=== PATIENT | male | born 1965 | race Caucasian/White ===

== ENCOUNTER 2017-05-09 11:42 | Emergency (ER) | payer MEDICAID ==
[~2017-05-09] VITALS: Ht 177.8 cm; Wt 81.6 kg
[2017-05-09 12:23] LABS: Basophils # (auto) 0.1 uL; Basophils % (auto) 1.1 % (0.0-2.0); Eosinophils # (auto) 0.2 uL; Hematocrit 38.9 % (41.0-53.0); Hemoglobin 13.1 g/dL (13.5-17.5); Lymphocytes # (auto) 1.7 uL; Lymphocytes % (auto) 20.4 % (10.0-50.0); Mean Corpuscular Hgb Conc. 33.6 g/dL (32.0-36.0); Mean Corpuscular Volume 98.4 fL (80.0-100.0); Mean Platelet Volume 10.5 fL (7.4-10.4); Monocytes # (auto) 0.5 uL; Monocytes % (auto) 5.9 % (0.0-12.0); Neutrophils # (auto) 5.7 uL; Neutrophils % (auto) 70.6 % (37.0-80.0); Platelet Count (auto) 199 10^3/uL (140-450); Red Cell Distribution Width 15.3 % (11.6-16.0); SUSPECT VIEW TRANSMISSION; White Blood Cell 8.1 10^3/uL (4.4-10.8)
[2017-05-09 12:58] LABS: Albumin 3.1 g/dL (3.4-5.0); Calcium 8.6 mg/dL (8.5-10.1)
[2017-05-09 13:02] LABS: Bilirubin, Total 0.5 mg/dL (0.2-1.0)
[2017-05-09 14:01] LABS: Potassium 4.9 mmol/L (3.5-5.1)
[2017-05-09 14:06] LABS: Magnesium 2.1 mg/dL (1.6-2.6)
[2017-05-09 15:44] VITALS: BP 119/73
== END 2017-05-09 15:45 | disposition home or self-care (01) ==
LOC: ER 11:51
DX: F41.9 Anxiety disorder, unspecified (principal); J20.9 Acute bronchitis, unspecified; F17.210 Nicotine dependence, cigarettes, uncomplicated; F12.10 Cannabis abuse, uncomplicated; F15.10 Other stimulant abuse, uncomplicated; F14.10 Cocaine abuse, uncomplicated; F11.10 Opioid abuse, uncomplicated
CPT/HCPCS: 36415; 71020; 80053; 80307; 83735; 84484; 85025; 93005

== ENCOUNTER 2017-05-12 11:05 | Inpatient (IN) | payer MEDICAID ==
[~2017-05-12] VITALS: Ht 175.3 cm; Wt 77.1 kg
[2017-05-12] MEDS ORDERED: SODIUM CHLORIDE 0.9% 1,000 ML IV ONE (11:45)
[2017-05-12 12:05] LABS: Basophils # (auto) 0 uL; Basophils % (auto) 0.5 % (0.0-2.0); CONDITION Y; Eosinophils # (auto) 0.1 uL; Eosinophils % (auto) 1.2 % (0.0-7.0); Hematocrit 35.7 % (41.0-53.0); Hemoglobin 12.1 g/dL (13.5-17.5); Lymphocytes # (auto) 1.8 uL; Lymphocytes % (auto) 22.4 % (10.0-50.0); Mean Corpuscular Hemoglobin 33.3 pg (28.0-32.0); Mean Corpuscular Hgb Conc. 33.9 g/dL (32.0-36.0); Mean Corpuscular Volume 98.2 fL (80.0-100.0); Mean Platelet Volume 9.4 fL (7.4-10.4); Monocytes # (auto) 0.5 uL; Monocytes % (auto) 6.3 % (0.0-12.0); Neutrophils # (auto) 5.5 uL; Neutrophils % (auto) 69.6 % (37.0-80.0); Platelet Count (auto) 197 10^3/uL (140-450); Red Cell Distribution Width 15.2 % (11.6-16.0); White Blood Cell 7.9 10^3/uL (4.4-10.8)
[2017-05-12 12:29] LABS: Albumin 3.1 g/dL (3.4-5.0); Alkaline Phosphatase 102 U/L (45-117); Anion Gap 11 (5-15); Aspartate Aminotransferase 89 U/L (15-37); BUN/Creatinine Ratio 24.3; Blood Urea Nitrogen 17 mg/dL (7-18); Calcium 8.3 mg/dL (8.5-10.1); Carbon Dioxide 25 mmol/L (21-32); Chloride 94 mmol/L (98-107); GFR African American 154 mL/min; GFR Non-African American 127 mL/min; Glucose 98 mg/dL (74-106); Potassium 4.1 mmol/L (3.5-5.1); Sodium 130 mmol/L (136-145)
[2017-05-12 13:31] LABS: Salicylate 1.9 mg/dL (2.8-20.0)
[2017-05-12 13:44] LABS: Acetaminophen 63.5 ug/mL (10-30)
[2017-05-12] MEDS ORDERED: ACETYLCYSTEINE ORAL for CIN 20%(200MG/ML) 4ML PO ONE (14:15)
[2017-05-12] MEDS ORDERED: PROMETHAZINE HCL 25 MG/ML 1ML IV PRN (14:15)
[2017-05-12] MEDS ORDERED: LACTULOSE 20Gm/30ML SOLN PO PRN (14:15)
[2017-05-12] MEDS ORDERED: NITROGLYCERIN 0.4 MG SL TAB SL PRN (14:15)
[2017-05-12] MEDS ORDERED: MORPHINE SULF INJ 2 MG/ML SYRINGE 1ML IV PRN (14:15)
[2017-05-12] MEDS: SODIUM CHLORIDE 0.9% 1,000 ML IV SCH ×2 (14:50→22:22)
[2017-05-12] MEDS: MORPHINE SULF INJ 2 MG/ML SYRINGE 1ML IV PRN ×2 (16:21→20:11)
[2017-05-12 19:51] LABS: BUN/Creatinine Ratio 23.1; Potassium 4.2 mmol/L (3.5-5.1)
[2017-05-12 20:08] LABS: Bilirubin, Total 0.4 mg/dL (0.2-1.0); Total Protein 7.4 g/dL (6.4-8.2)
[2017-05-12 21:13] VITALS: BP 102/67
[2017-05-12] MEDS: TEMAZEPAM 15 MG CAP PO PRN (22:18)
[2017-05-12] MEDS: ACETYLCYSTEINE 20%(200MG/ML) SOLN 30ML PO SCH (22:19)
[2017-05-13] MEDS ORDERED: QUET50TA PO (01:04)
[2017-05-13] MEDS ORDERED: LITH300T5 PO (01:05)
[2017-05-13] MEDS ORDERED: [UNRECOGNIZED DRUG - CODE] PO (01:06)
[2017-05-13] MEDS: MORPHINE SULF INJ 2 MG/ML SYRINGE 1ML IV PRN ×6 (02:34→21:31)
[2017-05-13] MEDS: ACETYLCYSTEINE 20%(200MG/ML) SOLN 30ML PO SCH ×6 (02:34→21:30)
[2017-05-13] MEDS: SODIUM CHLORIDE 0.9% 1,000 ML IV SCH ×4 (02:45→19:44)
[2017-05-13 05:57] VITALS: BP 117/73
[2017-05-13 07:24] LABS: Basophils # (auto) 0 uL; Basophils % (auto) 0.5 % (0.0-2.0); CONDITION AutoValidated; Eosinophils # (auto) 0.1 uL; Eosinophils % (auto) 1.3 % (0.0-7.0); Hematocrit 36.7 % (41.0-53.0); Hemoglobin 12.4 g/dL (13.5-17.5); Lymphocytes # (auto) 1.9 uL; Lymphocytes % (auto) 28.1 % (10.0-50.0); Mean Corpuscular Hemoglobin 33.4 pg (28.0-32.0); Mean Corpuscular Hgb Conc. 33.7 g/dL (32.0-36.0); Mean Corpuscular Volume 99.3 fL (80.0-100.0); Mean Platelet Volume 10.1 fL (7.4-10.4); Monocytes # (auto) 0.6 uL; Monocytes % (auto) 8.8 % (0.0-12.0); Neutrophils # (auto) 4.1 uL; Neutrophils % (auto) 61.3 % (37.0-80.0); Platelet Count (auto) 174 10^3/uL (140-450); Red Cell Distribution Width 16.4 % (11.6-16.0); White Blood Cell 6.7 10^3/uL (4.4-10.8)
[2017-05-13 07:50] LABS: BUN/Creatinine Ratio 24.1; Bilirubin, Total 0.3 mg/dL (0.2-1.0); Calcium 8.2 mg/dL (8.5-10.1)
[2017-05-13] MEDS: PANTOPRAZOLE 40 MG TAB PO SCH (10:19)
[2017-05-13 13:00] VITALS: BP 125/85
[2017-05-13] MEDS ORDERED: LITHIUM CARBONATE 300 MG TAB PO ONE (13:45)
[2017-05-13] MEDS ORDERED: QUEtiapine FUMARATE 25 MG TAB PO ONE (13:45)
[2017-05-13 15:28] LABS: BUN/Creatinine Ratio 23.9
[2017-05-13 15:32] LABS: INR 1.05 (0.9-1.15); Partial Thromboplastin Time 24.3 sec (22.64-33.71); Prothrombin Time 11.4 sec (9.37-12.3)
[2017-05-13 15:33] LABS: Bilirubin, Total 0.3 mg/dL (0.2-1.0); Total Protein 7.1 g/dL (6.4-8.2)
[2017-05-13 15:35] LABS: Potassium 4.3 mmol/L (3.5-5.1)
[2017-05-13 17:00] VITALS: BP 127/83
[2017-05-13 20:00] VITALS: BP 117/74
[2017-05-13] MEDS: LITHIUM CARBONATE 300 MG TAB PO SCH (21:30)
[2017-05-13] MEDS: QUEtiapine FUMARATE 25 MG TAB PO SCH (21:30)
[2017-05-13 22:00] VITALS: BP 117/74
[2017-05-13] MEDS: TEMAZEPAM 15 MG CAP PO PRN (23:00)
[2017-05-14] MEDS: ACETYLCYSTEINE 20%(200MG/ML) SOLN 30ML PO SCH ×6 (02:08→21:44)
[2017-05-14] MEDS: MORPHINE SULF INJ 2 MG/ML SYRINGE 1ML IV PRN ×5 (02:15→21:45)
[2017-05-14] MEDS: SODIUM CHLORIDE 0.9% 1,000 ML IV SCH ×3 (02:21→19:44)
[2017-05-14 06:18] LABS: Basophils # (auto) 0 uL; Basophils % (auto) 0.4 % (0.0-2.0); CONDITION AutoValidated; Eosinophils # (auto) 0.1 uL; Eosinophils % (auto) 2.2 % (0.0-7.0); Hematocrit 35.3 % (41.0-53.0); Hemoglobin 11.7 g/dL (13.5-17.5); Lymphocytes # (auto) 1.7 uL; Lymphocytes % (auto) 27.2 % (10.0-50.0); Mean Corpuscular Hgb Conc. 33.2 g/dL (32.0-36.0); Mean Corpuscular Volume 99.2 fL (80.0-100.0); Mean Platelet Volume 10.2 fL (7.4-10.4); Monocytes # (auto) 0.9 uL; Monocytes % (auto) 13.9 % (0.0-12.0); Neutrophils # (auto) 3.6 uL; Neutrophils % (auto) 56.3 % (37.0-80.0); Platelet Count (auto) 131 10^3/uL (140-450); White Blood Cell 6.4 10^3/uL (4.4-10.8)
[2017-05-14 06:20] LABS: Albumin 2.9 g/dL (3.4-5.0); Calcium 8.2 mg/dL (8.5-10.1); Potassium 4.2 mmol/L (3.5-5.1)
[2017-05-14 06:22] LABS: BUN/Creatinine Ratio 19.4
[2017-05-14 06:24] LABS: Bilirubin, Total 0.4 mg/dL (0.2-1.0); Total Protein 7.1 g/dL (6.4-8.2)
[2017-05-14 06:25] VITALS: BP 132/82
[2017-05-14] MEDS: LORazepam 0.5 MG TAB PO PRN ×2 (08:46→14:58)
[2017-05-14 08:56] VITALS: BP 131/79
[2017-05-14] MEDS: QUEtiapine FUMARATE 25 MG TAB PO SCH ×2 (09:22→21:44)
[2017-05-14] MEDS: LITHIUM CARBONATE 300 MG TAB PO SCH ×2 (09:22→21:44)
[2017-05-14] MEDS: PANTOPRAZOLE 40 MG TAB PO SCH (09:22)
[2017-05-14] MEDS: DOXYCYCLINE HYC 100MG/250ML 250 ML IV SCH (12:15)
[2017-05-14 13:54] VITALS: BP 138/82
[2017-05-14] MEDS: TEMAZEPAM 15 MG CAP PO PRN (21:44)
[2017-05-14 22:00] VITALS: BP 130/76
[2017-05-15] MEDS: DOXYCYCLINE HYC 100MG/250ML 250 ML IV SCH ×2 (00:44→13:06)
[2017-05-15] MEDS: ACETYLCYSTEINE 20%(200MG/ML) SOLN 30ML PO SCH ×4 (02:03→14:00)
[2017-05-15] MEDS: MORPHINE SULF INJ 2 MG/ML SYRINGE 1ML IV PRN ×4 (02:04→19:50)
[2017-05-15] MEDS: SODIUM CHLORIDE 0.9% 1,000 ML IV SCH ×3 (03:06→15:34)
[2017-05-15 04:45] VITALS: BP 121/76
[2017-05-15] MEDS: LORazepam 0.5 MG TAB PO PRN ×3 (05:48→17:42)
[2017-05-15 06:23] LABS: Albumin 3.1 g/dL (3.4-5.0); BUN/Creatinine Ratio 17.9; Potassium 4.2 mmol/L (3.5-5.1)
[2017-05-15 06:26] LABS: Bilirubin, Total 0.5 mg/dL (0.2-1.0); Total Protein 7.8 g/dL (6.4-8.2)
[2017-05-15] MEDS: QUEtiapine FUMARATE 25 MG TAB PO SCH ×2 (10:41→21:28)
[2017-05-15] MEDS: PANTOPRAZOLE 40 MG TAB PO SCH (10:41)
[2017-05-15] MEDS: LITHIUM CARBONATE 300 MG TAB PO SCH ×2 (10:41→21:28)
[2017-05-15] MEDS ORDERED: HALOPERIDOL LACTATE 5 MG/ML INJ VIAL IM ONE ×2 (15:15→16:00)
[2017-05-16] MEDS: SODIUM CHLORIDE 0.9% 1,000 ML IV SCH ×4 (00:34→13:51)
[2017-05-16] MEDS: DOXYCYCLINE HYC 100MG/250ML 250 ML IV SCH ×2 (02:52→12:32)
[2017-05-16] MEDS: MORPHINE SULF INJ 2 MG/ML SYRINGE 1ML IV PRN ×2 (04:06→09:23)
[2017-05-16 05:04] VITALS: BP 124/78
[2017-05-16] MEDS: LITHIUM CARBONATE 300 MG TAB PO SCH (09:23)
[2017-05-16] MEDS: QUEtiapine FUMARATE 25 MG TAB PO SCH (09:23)
[2017-05-16] MEDS: PANTOPRAZOLE 40 MG TAB PO SCH (09:23)
[2017-05-16] MEDS: LORazepam 0.5 MG TAB PO PRN (09:24)
[2017-05-17] MEDS ORDERED: ASPI81CH49 (07:47)
[2017-05-17] MEDS ORDERED: LACT10SO44 (07:47)
[2017-05-17] MEDS ORDERED: CARV3.1240 (07:47)
[2017-05-17] MEDS ORDERED: OLAN20TA17 (07:47)
[2017-05-17] MEDS ORDERED: FURO40TA4 (07:47)
[2017-05-17] MEDS ORDERED: SPIR25TA89 (07:47)
== END 2017-05-16 19:24 | DRG 812 ==
LOC: ER 11:05 → EDBD 11:05 → TELE 11:06 → TELE-WESTW 21:13
PROVIDERS: ADMIT Internal Medicine; ATTEND Internal Medicine
DX: T39.1X2A Poisoning by 4-Aminophenol derivatives, intentional self-harm, initial encounter (principal); S22.009A Unspecified fracture of unspecified thoracic vertebra, initial encounter for closed fracture; K75.9 Inflammatory liver disease, unspecified; E87.1 Hypo-osmolality and hyponatremia; F32.9 Major depressive disorder, single episode, unspecified; F20.9 Schizophrenia, unspecified; F17.210 Nicotine dependence, cigarettes, uncomplicated; J20.9 Acute bronchitis, unspecified; Z59.0 Homelessness; Z71.89 Other specified counseling; M25.511 Pain in right shoulder; X58.XXXA Exposure to other specified factors, initial encounter; Y93.89 Activity, other specified; Y92.89 Other specified places as the place of occurrence of the external cause; Y99.8 Other external cause status
CPT/HCPCS: 36415; 73030; 73200; 80053; 80307; 80320; 80329; 83735; 85025; 85610; 85730; 87081; 94761; 96360; J3490

== ENCOUNTER 2017-05-16 19:29 | Emergency (ER) | payer MEDICAID ==
[~2017-05-16] VITALS: Ht 172.7 cm; Wt 65.8 kg
[~2017-05-16 19:29] MED LIST: LITH300T5 PO; QUET50TA PO; [UNRECOGNIZED DRUG - CODE] PO
[2017-05-16 20:30] LABS: Basophils # (auto) 0 uL; Basophils % (auto) 0.2 % (0.0-2.0); CONDITION Y; Eosinophils # (auto) 0 uL; Eosinophils % (auto) 0.6 % (0.0-7.0); Hematocrit 40.1 % (41.0-53.0); Hemoglobin 13.2 g/dL (13.5-17.5); Lymphocytes # (auto) 1.4 uL; Lymphocytes % (auto) 18.8 % (10.0-50.0); Mean Corpuscular Hemoglobin 32.9 pg (28.0-32.0); Mean Corpuscular Volume 99.7 fL (80.0-100.0); Mean Platelet Volume 10.2 fL (7.4-10.4); Monocytes # (auto) 0.4 uL; Monocytes % (auto) 5.6 % (0.0-12.0); Neutrophils # (auto) 5.7 uL; Neutrophils % (auto) 74.8 % (37.0-80.0); Platelet Count (auto) 192 10^3/uL (140-450); Red Cell Distribution Width 16.5 % (11.6-16.0); White Blood Cell 7.6 10^3/uL (4.4-10.8)
[2017-05-16 20:49] LABS: Albumin 3.3 g/dL (3.4-5.0); Alkaline Phosphatase 102 U/L (45-117); Anion Gap 8 (5-15); Aspartate Aminotransferase 59 U/L (15-37); BUN/Creatinine Ratio 15.4; Bilirubin, Total 0.6 mg/dL (0.2-1.0); Blood Urea Nitrogen 12 mg/dL (7-18); Calcium 9.3 mg/dL (8.5-10.1); Carbon Dioxide 23 mmol/L (21-32); Chloride 100 mmol/L (98-107); GFR African American 135 mL/min; GFR Non-African American 112 mL/min; Glucose 124 mg/dL (74-106); Magnesium 2.1 mg/dL (1.6-2.6); Potassium 4.8 mmol/L (3.5-5.1); Sodium 131 mmol/L (136-145); Total Protein 7.6 g/dL (6.4-8.2)
[2017-05-16 21:22] LABS: Acetaminophen < 2.0 ug/mL (10-30)
[2017-05-16] MEDS ORDERED: QUEtiapine FUMARATE 25 MG TAB PO ONE (22:00)
[2017-05-16] MEDS ORDERED: LITHIUM CARBONATE 300 MG TAB PO ONE (22:00)
[2017-05-17] MEDS ORDERED: HYDROcodone-ACET 5/325MG TAB PO ONE (06:30)
[2017-05-17] MEDS ORDERED: LORazepam 0.5 MG TAB PO ONE (06:30)
[2017-05-17] MEDS ORDERED: OLAN20TA17 PO (07:47)
[2017-05-17] MEDS ORDERED: LACT10SO44 PO (07:47)
[2017-05-17] MEDS ORDERED: SPIR25TA89 PO (07:47)
[2017-05-17] MEDS ORDERED: ASPI81CH49 PO (07:47)
[2017-05-17] MEDS ORDERED: CARV3.1240 PO (07:47)
[2017-05-17] MEDS ORDERED: FURO40TA4 PO (07:47)
[2017-05-17] MEDS ORDERED: OLANZapine 5 MG TAB PO ONE (08:00)
[2017-05-17] MEDS: FUROSEMIDE 40 MG TAB PO SCH (10:13)
[2017-05-17] MEDS: ASPirin 81 mg TAB PO SCH (10:13)
[2017-05-17] MEDS: SPIRONOLACTONE 25 MG TAB PO SCH (10:13)
[2017-05-17] MEDS: OLANZapine 5 MG TAB PO SCH (10:13)
[2017-05-17] MEDS: CARVEDILOL 3.125 MG TAB PO SCH ×2 (10:13→22:35)
[2017-05-17] MEDS ORDERED: ALBUTEROL SULF 2.5 MG/0.5ML(0.5%) NEB SOLN NEB ONE (15:00)
[2017-05-17] MEDS ORDERED: IPRATROPIUM BROM 0.5 MG/2.5ML INH SOL NEB ONE (15:00)
[2017-05-17] MEDS ORDERED: LITHIUM CARBONATE 300 MG TAB PO ONE (22:45)
[2017-05-17] MEDS ORDERED: QUEtiapine FUMARATE 25 MG TAB PO ONE (22:45)
[2017-05-18] MEDS: QUEtiapine FUMARATE 25 MG TAB PO SCH ×2 (12:15→22:32)
[2017-05-18] MEDS: CARVEDILOL 3.125 MG TAB PO SCH ×2 (12:15→22:00)
[2017-05-18] MEDS: ASPirin 81 mg TAB PO SCH (12:15)
[2017-05-18] MEDS: SPIRONOLACTONE 25 MG TAB PO SCH (12:15)
[2017-05-18] MEDS: OLANZapine 5 MG TAB PO SCH (12:15)
[2017-05-18] MEDS: LITHIUM CARBONATE 300 MG TAB PO SCH ×2 (12:15→22:32)
[2017-05-18] MEDS: FUROSEMIDE 40 MG TAB PO SCH (12:15)
[2017-05-19] MEDS ORDERED: SPIRONOLACTONE 25 MG TAB ONE (12:44)
[2017-05-19] MEDS ORDERED: OLANZapine 5 MG TAB ONE (12:44)
[2017-05-19] MEDS ORDERED: ASPirin 81 mg TAB ONE (12:44)
[2017-05-19] MEDS ORDERED: FUROSEMIDE 40 MG TAB ONE (12:44)
[2017-05-19] MEDS ORDERED: QUEtiapine FUMARATE 25 MG TAB ONE (12:46)
[2017-05-19] MEDS ORDERED: LITHIUM CARBONATE 300 MG TAB ONE (12:46)
[2017-05-19] MEDS ORDERED: CARVEDILOL 3.125 MG TAB ONE (12:46)
[2017-05-19] MEDS: CARVEDILOL 3.125 MG TAB PO SCH ×2 (12:50→22:00)
[2017-05-19] MEDS: QUEtiapine FUMARATE 25 MG TAB PO SCH ×2 (12:50→22:00)
[2017-05-19] MEDS: OLANZapine 5 MG TAB PO SCH (12:50)
[2017-05-19] MEDS: SPIRONOLACTONE 25 MG TAB PO SCH (12:50)
[2017-05-19] MEDS: LITHIUM CARBONATE 300 MG TAB PO SCH ×2 (12:50→22:00)
[2017-05-19] MEDS: FUROSEMIDE 40 MG TAB PO SCH (12:50)
[2017-05-19] MEDS: ASPirin 81 mg TAB PO SCH (12:50)
[2017-05-19] MEDS ORDERED: ALBUTEROL SULF 2.5 MG/0.5ML(0.5%) NEB SOLN NEB ONE (21:15)
[2017-05-19] MEDS ORDERED: IPRATROPIUM BROM 0.5 MG/2.5ML INH SOL NEB ONE (21:15)
[2017-05-20 05:18] VITALS: BP 105/76
== END 2017-05-20 07:04 | disposition home or self-care (01) ==
LOC: ER 19:44
DX: F31.9 Bipolar disorder, unspecified (principal); R45.851 Suicidal ideations; F20.9 Schizophrenia, unspecified; Z59.0 Homelessness; F41.9 Anxiety disorder, unspecified; F17.210 Nicotine dependence, cigarettes, uncomplicated; F12.10 Cannabis abuse, uncomplicated; F15.10 Other stimulant abuse, uncomplicated; F14.10 Cocaine abuse, uncomplicated; F11.10 Opioid abuse, uncomplicated
CPT/HCPCS: 36415; 71010; 80053; 80320; 80329; 83735; 85025; 94640

== ENCOUNTER 2017-05-20 13:46 | Inpatient (IN) | payer MEDICAID ==
[~2017-05-20] VITALS: Ht 172.7 cm; Wt 84.0 kg
[~2017-05-20 13:46] MED LIST changes: +ASPI81CH49 PO; +CARV3.1240 PO; +FURO40TA4 PO; +LACT10SO44 PO; +OLAN20TA17 PO; +SPIR25TA89 PO
[2017-05-20 14:40] LABS: Base Excess -5.3 mmol/L (-2.0-2.0); Blood 02Sat 86.5 % (96-100); Blood COHb 2.2 % (0.5-1.5); Blood MetHb 0.1 % (0.0-1.5); HCO3 21.1 mmol/L (22-26.0); HHb 13.2 % (0.0-5.0); MODE NASAL CANNULA; O2Hb 84.5 % (94.0-97.0); PCO2 44.6 mmHg (35.0-45.0); PCO2(T) 44.6 mmHg (35.0-45.0); PO2 60.3 mmHg (80.0-100.0); PO2(T) 60.3 mmHg (80.0-100.0); Sample Type Arterial; pH 7.293 (7.350-7.450)
[2017-05-20 14:47] LABS: Basophils # (auto) 0 uL; Basophils % (auto) 0.3 % (0.0-2.0); CONDITION Y; Eosinophils # (auto) 0 uL; Eosinophils % (auto) 0.1 % (0.0-7.0); Hematocrit 39.8 % (41.0-53.0); Hemoglobin 13.4 g/dL (13.5-17.5); Lymphocytes # (auto) 1.7 uL; Lymphocytes % (auto) 16.3 % (10.0-50.0); Mean Corpuscular Hemoglobin 33.4 pg (28.0-32.0); Mean Corpuscular Hgb Conc. 33.5 g/dL (32.0-36.0); Mean Corpuscular Volume 99.6 fL (80.0-100.0); Mean Platelet Volume 9.8 fL (7.4-10.4); Monocytes # (auto) 0.9 uL; Monocytes % (auto) 8.2 % (0.0-12.0); Neutrophils # (auto) 7.9 uL; Neutrophils % (auto) 75.1 % (37.0-80.0); Platelet Count (auto) 290 10^3/uL (140-450); Red Cell Distribution Width 17.1 % (11.6-16.0); White Blood Cell 10.5 10^3/uL (4.4-10.8)
[2017-05-20 15:11] LABS: Albumin 3.7 g/dL (3.4-5.0); BUN/Creatinine Ratio 32.3; Bilirubin, Total 0.7 mg/dL (0.2-1.0); Calcium 8.8 mg/dL (8.5-10.1); Magnesium 2.5 mg/dL (1.6-2.6); Potassium 4.7 mmol/L (3.5-5.1); Total Protein 8.1 g/dL (6.4-8.2)
[2017-05-20 15:16] LABS: B-Type Natriuretic Peptide 4690.66 pg/mL (0-100)
[2017-05-20 15:37] LABS: Urine Bilirubin Negative (Negative); Urine Blood Negative /uL (Negative); Urine Color Yellow (Yellow); Urine Glucose Normal (Normal); Urine Granular Cast FEW /lpf (0); Urine Hyaline Cast MOD /lpf (0 - 2); Urine Ketone Negative (Negative); Urine Mucus FEW (None Seen); Urine Nitrite Negative (Negative); Urine RBC 19 /hpf (0 - 3)
[2017-05-20] MEDS ORDERED: LORazepam 0.5 MG TAB PO PRN (15:45)
[2017-05-20] MEDS ORDERED: NITROGLYCERIN 0.4 MG SL TAB SL PRN (15:45)
[2017-05-20] MEDS ORDERED: ACETAMINOPHEN 500 MG TAB PO PRN (15:45)
[2017-05-20] MEDS ORDERED: TEMAZEPAM 15 MG CAP PO PRN (15:45)
[2017-05-20] MEDS ORDERED: MORPHINE SULF INJ 2 MG/ML SYRINGE 1ML IV PRN (15:45)
[2017-05-20 15:46] LABS: Temperature: 23.3 C (20.0-25.0)
[2017-05-20] MEDS ORDERED: IOHEXOL 350 MG/ML 100ML IJ ONE (16:01)
[2017-05-20] MEDS: ENOXAPARIN SOD 40 MG/0.4 ML SYRINGE SC SCH (16:46)
[2017-05-20] MEDS: LITHIUM CARBONATE 300 MG TAB PO SCH (22:00)
[2017-05-20] MEDS: CHLORPROMAZINE HCL 10 MG TAB PO SCH (22:00)
[2017-05-20] MEDS: CARVEDILOL 3.125 MG TAB PO SCH (22:00)
[2017-05-20] MEDS: QUEtiapine FUMARATE 25 MG TAB PO SCH (22:00)
[2017-05-21] MEDS ORDERED: IOHEXOL 350 MG/ML 100ML IJ ONE (00:35)
[2017-05-21 05:00] VITALS: BP 113/84
[2017-05-21 05:15] VITALS: BP 113/84
[2017-05-21 05:33] LABS: Cholesterol 152 mg/dL (< 200); HDL Cholesterol 19 mg/dL (40-59); LDL Cholesterol 115 mg/dL (< 100); Triglycerides 138 mg/dL (< 150)
[2017-05-21] MEDS: MORPHINE SULF INJ 2 MG/ML SYRINGE 1ML IV PRN (08:45)
[2017-05-21] MEDS ORDERED: ASPirin 81 mg TAB PO SCH (10:00)
[2017-05-21] MEDS: NITROGLYCERIN 0.2MG/HR TOPICAL PATCH TD SCH (10:00)
[2017-05-21] MEDS: QUEtiapine FUMARATE 25 MG TAB PO SCH ×2 (11:12→21:23)
[2017-05-21] MEDS: ENOXAPARIN SOD 40 MG/0.4 ML SYRINGE SC SCH (11:12)
[2017-05-21] MEDS: SPIRONOLACTONE 25 MG TAB PO SCH (11:13)
[2017-05-21] MEDS: LITHIUM CARBONATE 300 MG TAB PO SCH ×2 (11:13→21:22)
[2017-05-21] MEDS: OLANZapine 5 MG TAB PO SCH (11:13)
[2017-05-21] MEDS: FUROSEMIDE 40 MG TAB PO SCH (11:13)
[2017-05-21] MEDS: CARVEDILOL 3.125 MG TAB PO SCH ×2 (11:13→21:23)
[2017-05-21 16:55] VITALS: BP 94/72
[2017-05-21] MEDS: CHLORPROMAZINE HCL 10 MG TAB PO SCH (21:23)
[2017-05-21] MEDS: ENOXAPARIN SOD 80 MG/0.8ML SYRINGE SC SCH (21:38)
[2017-05-21 22:00] VITALS: BP 119/69
[2017-05-22] VITALS (11 sets, daily range): BP systolic 105–154; BP diastolic 67–85
[2017-05-22 06:31] LABS: Basophils # (auto) 0.1 uL; Basophils % (auto) 0.7 % (0.0-2.0); CONDITION Y; Eosinophils # (auto) 0 uL; Eosinophils % (auto) 0.4 % (0.0-7.0); Hematocrit 38.1 % (41.0-53.0); Lymphocytes # (auto) 2.2 uL; Lymphocytes % (auto) 23.8 % (10.0-50.0); Mean Corpuscular Hemoglobin 33.4 pg (28.0-32.0); Mean Corpuscular Hgb Conc. 34.1 g/dL (32.0-36.0); Mean Corpuscular Volume 98.1 fL (80.0-100.0); Mean Platelet Volume 10.8 fL (7.4-10.4); Monocytes % (auto) 10.9 % (0.0-12.0); Neutrophils % (auto) 64.2 % (37.0-80.0); Platelet Count (auto) 281 10^3/uL (140-450); Red Cell Distribution Width 16.7 % (11.6-16.0); White Blood Cell 9.3 10^3/uL (4.4-10.8)
[2017-05-22 06:38] LABS: INR 1.23 (0.9-1.15); Partial Thromboplastin Time 51.8 sec (22.64-33.71)
[2017-05-22 07:04] LABS: Prothrombin Time 13.4 sec (9.37-12.3)
[2017-05-22] MEDS: MORPHINE SULF INJ 2 MG/ML SYRINGE 1ML IV PRN (09:22)
[2017-05-22] MEDS: ENOXAPARIN SOD 80 MG/0.8ML SYRINGE SC SCH ×2 (09:23→21:28)
[2017-05-22] MEDS: QUEtiapine FUMARATE 25 MG TAB PO SCH ×2 (09:23→21:28)
[2017-05-22] MEDS: OLANZapine 5 MG TAB PO SCH (09:23)
[2017-05-22] MEDS: LITHIUM CARBONATE 300 MG TAB PO SCH ×2 (09:23→21:27)
[2017-05-22] MEDS: SPIRONOLACTONE 25 MG TAB PO SCH (09:23)
[2017-05-22] MEDS: NITROGLYCERIN 0.2MG/HR TOPICAL PATCH TD SCH (09:24)
[2017-05-22] MEDS: CARVEDILOL 3.125 MG TAB PO SCH ×2 (09:24→21:28)
[2017-05-22] MEDS: FUROSEMIDE 40 MG TAB PO SCH (09:24)
[2017-05-22 12:35] LABS: Base Excess 1.1 mmol/L (-2.0-2.0); Blood 02Sat 96.2 % (96-100); Blood COHb 0.6 % (0.5-1.5); Blood MetHb 0.1 % (0.0-1.5); HCO3 30.9 mmol/L (22-26.0); HHb 3.8 % (0.0-5.0); MODE NASAL CANNULA; O2Hb 95.5 % (94.0-97.0); PCO2 75.8 mmHg (35.0-45.0); PCO2(T) 75.8 mmHg (35.0-45.0); PO2 96.8 mmHg (80.0-100.0); PO2(T) 96.8 mmHg (80.0-100.0); Room 0277T; Sample Type Arterial; pH 7.228 (7.350-7.450)
[2017-05-22 14:27] LABS: Blood 02Sat 91.7 % (96-100); Blood COHb 0.4 % (0.5-1.5); Blood MetHb 0.3 % (0.0-1.5); HCO3 29.6 mmol/L (22-26.0); HHb 8.2 % (0.0-5.0); MODE MASK - BIPAP; O2Hb 91.1 % (94.0-97.0); PCO2 60.3 mmHg (35.0-45.0); PCO2(T) 60.3 mmHg (35.0-45.0); PO2 71.3 mmHg (80.0-100.0); PO2(T) 71.3 mmHg (80.0-100.0); Pressure Support 11; Room 0277T; Sample Type Arterial; pH 7.309 (7.350-7.450)
[2017-05-22] MEDS: IPRATROPIUM BROM 0.5 MG/2.5ML INH SOL NEB SCH ×2 (14:37→18:38)
[2017-05-22] MEDS: ALBUTEROL SULF 2.5 MG/0.5ML(0.5%) NEB SOLN NEB SCH ×3 (14:37→22:07)
[2017-05-22] MEDS: methylPREDNISolone SOD SUCC 40 MG/ML VL IV SCH (18:07)
[2017-05-22 18:30] LABS: Base Excess 2.7 mmol/L (-2.0-2.0); Blood 02Sat 93.8 % (96-100); Blood COHb 0.4 % (0.5-1.5); Blood MetHb 0.2 % (0.0-1.5); HCO3 30.3 mmol/L (22-26.0); HHb 6.2 % (0.0-5.0); MODE MASK - BIPAP; O2Hb 93.2 % (94.0-97.0); PCO2 60.8 mmHg (35.0-45.0); PCO2(T) 60.8 mmHg (35.0-45.0); PO2 80.8 mmHg (80.0-100.0); PO2(T) 80.8 mmHg (80.0-100.0); Room 0265D; Sample Type Arterial; pH 7.315 (7.350-7.450)
[2017-05-22 19:36] LABS: Urine Bilirubin Negative (Negative); Urine Blood Negative /uL (Negative); Urine Color Yellow (Yellow); Urine Glucose Normal (Normal); Urine Hyaline Cast FEW /lpf (0 - 2); Urine Ketone Negative (Negative); Urine Nitrite Negative (Negative); Urine RBC 3 /hpf (0 - 3); Urine Squamous Epithelial Cell FEW /hpf (<5); Urine Urobilinogen Normal (Negative); Urine pH 5.5 (5.0-8.0)
[2017-05-22] MEDS: CHLORPROMAZINE HCL 10 MG TAB PO SCH (21:27)
[2017-05-23] VITALS: BP 107/48
[2017-05-23] MEDS: methylPREDNISolone SOD SUCC 40 MG/ML VL IV SCH ×5 (01:08→23:46)
[2017-05-23] MEDS: ALBUTEROL SULF 2.5 MG/0.5ML(0.5%) NEB SOLN NEB SCH ×6 (02:14→22:23)
[2017-05-23 04:00] VITALS: BP 104/76
[2017-05-23 04:56] LABS: Basophils # (auto) 0 uL; Basophils % (auto) 0.2 % (0.0-2.0); CONDITION Y; Eosinophils # (auto) 0 uL; Hematocrit 34.8 % (41.0-53.0); Hemoglobin 11.6 g/dL (13.5-17.5); Lymphocytes # (auto) 0.6 uL; Lymphocytes % (auto) 10.8 % (10.0-50.0); Mean Corpuscular Hgb Conc. 33.3 g/dL (32.0-36.0); Mean Corpuscular Volume 99.4 fL (80.0-100.0); Mean Platelet Volume 9.3 fL (7.4-10.4); Monocytes # (auto) 0.1 uL; Monocytes % (auto) 1.9 % (0.0-12.0); Neutrophils # (auto) 4.6 uL; Neutrophils % (auto) 87.1 % (37.0-80.0); Platelet Count (auto) 226 10^3/uL (140-450); White Blood Cell 5.3 10^3/uL (4.4-10.8)
[2017-05-23 05:11] LABS: INR 1.18 (0.9-1.15); Partial Thromboplastin Time 30.7 sec (22.64-33.71)
[2017-05-23 05:13] LABS: Prothrombin Time 12.9 sec (9.37-12.3)
[2017-05-23 05:18] LABS: BUN/Creatinine Ratio 36.5; Calcium 8.3 mg/dL (8.5-10.1); Potassium 4.5 mmol/L (3.5-5.1)
[2017-05-23 05:51] LABS: Allen Test Yes; Base Excess 6.6 mmol/L (-2.0-2.0); Blood 02Sat 92.6 % (96-100); Blood MetHb 0.4 % (0.0-1.5); HCO3 32.7 mmol/L (22-26.0); HHb 7.4 % (0.0-5.0); MODE MASK - BIPAP; O2Hb 92.2 % (94.0-97.0); PCO2 53.7 mmHg (35.0-45.0); PCO2(T) 53.7 mmHg (35.0-45.0); Room 0265D; Sample Type Arterial; Spont Vt 663; pH 7.402 (7.350-7.450)
[2017-05-23] MEDS: IPRATROPIUM BROM 0.5 MG/2.5ML INH SOL NEB SCH ×4 (05:55→18:56)
[2017-05-23] MEDS: QUEtiapine FUMARATE 25 MG TAB PO SCH ×2 (06:48→21:34)
[2017-05-23] MEDS: LITHIUM CARBONATE 300 MG TAB PO SCH ×2 (06:48→21:33)
[2017-05-23 08:00] VITALS: BP 126/76
[2017-05-23] MEDS: HYDROcodone-ACET 5/325MG TAB PO PRN ×2 (09:30→20:52)
[2017-05-23] MEDS: FUROSEMIDE 40 MG TAB PO SCH (09:38)
[2017-05-23] MEDS: CARVEDILOL 3.125 MG TAB PO SCH ×2 (09:38→21:34)
[2017-05-23] MEDS: SPIRONOLACTONE 25 MG TAB PO SCH (09:38)
[2017-05-23] MEDS: ENOXAPARIN SOD 80 MG/0.8ML SYRINGE SC SCH ×2 (09:39→21:34)
[2017-05-23 12:00] VITALS: BP 133/80
[2017-05-23] MEDS ORDERED: QUEtiapine FUMARATE 25 MG TAB PO ONE (15:15)
[2017-05-23] MEDS ORDERED: LITHIUM CARBONATE 300 MG TAB PO ONE (15:15)
[2017-05-23] MEDS: MORPHINE SULF INJ 2 MG/ML SYRINGE 1ML IV PRN (15:38)
[2017-05-23 16:00] VITALS: BP 126/85
[2017-05-23 20:00] VITALS: BP 114/75
[2017-05-23] MEDS: PROMETHAZINE HCL 25 MG/ML 1ML IV PRN (20:51)
[2017-05-23] MEDS: CHLORPROMAZINE HCL 10 MG TAB PO SCH (21:01)
[2017-05-24] VITALS (7 sets, daily range): BP systolic 100–124; BP diastolic 56–79
[2017-05-24] MEDS: PROMETHAZINE HCL 25 MG/ML 1ML IV PRN ×2 (02:20→16:30)
[2017-05-24] MEDS: HYDROcodone-ACET 5/325MG TAB PO PRN ×3 (02:20→21:39)
[2017-05-24] MEDS: IPRATROPIUM BROM 0.5 MG/2.5ML INH SOL NEB SCH ×5 (02:26→19:45)
[2017-05-24] MEDS: ALBUTEROL SULF 2.5 MG/0.5ML(0.5%) NEB SOLN NEB SCH ×6 (02:26→22:07)
[2017-05-24] MEDS: methylPREDNISolone SOD SUCC 40 MG/ML VL IV SCH ×3 (05:50→18:20)
[2017-05-24] MEDS: ENOXAPARIN SOD 80 MG/0.8ML SYRINGE SC SCH (09:50)
[2017-05-24] MEDS: QUEtiapine FUMARATE 25 MG TAB PO SCH ×2 (09:50→21:29)
[2017-05-24] MEDS: FUROSEMIDE 40 MG TAB PO SCH (09:51)
[2017-05-24] MEDS: CARVEDILOL 3.125 MG TAB PO SCH ×2 (09:51→21:28)
[2017-05-24] MEDS: SPIRONOLACTONE 25 MG TAB PO SCH (09:51)
[2017-05-24] MEDS: MORPHINE SULF INJ 2 MG/ML SYRINGE 1ML IV PRN (09:52)
[2017-05-24] MEDS: LITHIUM CARBONATE 300 MG TAB PO SCH ×2 (09:52→21:28)
[2017-05-24] MEDS ORDERED: NICOTINE 21MG/24 HR TOPICAL PATCH TD SCH (20:00)
[2017-05-24] MEDS: CHLORPROMAZINE HCL 10 MG TAB PO SCH (21:27)
[2017-05-24] MEDS: APIXABAN 5 MG TAB PO SCH (21:29)
[2017-05-24] MEDS ORDERED: NICOTINE 14 MG/24HR TOPICAL PATCH TD SCH (22:00)
[2017-05-24] MEDS ORDERED: APIXABAN 5 MG TAB PO SCH (22:00)
[2017-05-25] VITALS (7 sets, daily range): BP systolic 107–118; BP diastolic 66–77
[2017-05-25] MEDS: methylPREDNISolone SOD SUCC 40 MG/ML VL IV SCH ×4 (00:11→18:50)
[2017-05-25] MEDS: IPRATROPIUM BROM 0.5 MG/2.5ML INH SOL NEB SCH ×6 (00:50→18:00)
[2017-05-25] MEDS: ALBUTEROL SULF 2.5 MG/0.5ML(0.5%) NEB SOLN NEB SCH ×5 (00:53→18:00)
[2017-05-25] MEDS ORDERED: FUROSEMIDE 20 MG/2 ML VIAL IV ONE (01:00)
[2017-05-25] MEDS: MORPHINE SULF INJ 2 MG/ML SYRINGE 1ML IV PRN ×2 (01:01→09:52)
[2017-05-25] MEDS: HYDROcodone-ACET 5/325MG TAB PO PRN (02:52)
[2017-05-25 06:20] LABS: Basophils # (auto) 0 uL; Basophils % (auto) 0.3 % (0.0-2.0); CONDITION Y; Eosinophils # (auto) 0 uL; Hematocrit 43.9 % (41.0-53.0); Hemoglobin 14.4 g/dL (13.5-17.5); Lymphocytes # (auto) 0.6 uL; Mean Corpuscular Hemoglobin 32.8 pg (28.0-32.0); Mean Corpuscular Hgb Conc. 32.7 g/dL (32.0-36.0); Mean Corpuscular Volume 100.2 fL (80.0-100.0); Mean Platelet Volume 9.7 fL (7.4-10.4); Monocytes # (auto) 0.3 uL; Monocytes % (auto) 1.7 % (0.0-12.0); Neutrophils # (auto) 14.6 uL; Platelet Count (auto) 307 10^3/uL (140-450); Red Cell Distribution Width 17.9 % (11.6-16.0); White Blood Cell 15.5 10^3/uL (4.4-10.8)
[2017-05-25 06:22] LABS: Calcium 8.4 mg/dL (8.5-10.1)
[2017-05-25 06:29] LABS: BUN/Creatinine Ratio 32.3
[2017-05-25 06:52] LABS: INR 1.06 (0.9-1.15); Partial Thromboplastin Time 27.9 sec (22.64-33.71); Prothrombin Time 11.6 sec (9.37-12.3)
[2017-05-25] MEDS: QUEtiapine FUMARATE 25 MG TAB PO SCH ×3 (08:35→22:15)
[2017-05-25] MEDS: NICOTINE 21MG/24 HR TOPICAL PATCH TD SCH (08:40)
[2017-05-25] MEDS: LITHIUM CARBONATE 300 MG TAB PO SCH ×2 (09:53→22:15)
[2017-05-25] MEDS: APIXABAN 5 MG TAB PO SCH ×2 (09:53→22:16)
[2017-05-25] MEDS: CARVEDILOL 3.125 MG TAB PO SCH ×2 (09:54→22:17)
[2017-05-25] MEDS: SPIRONOLACTONE 25 MG TAB PO SCH (09:54)
[2017-05-25] MEDS: FUROSEMIDE 40 MG TAB PO SCH (09:55)
[2017-05-25] MEDS ORDERED: NICOTINE 7MG/24HR TOPICAL PATCH TD SCH (10:00)
[2017-05-25] MEDS ORDERED: MORPHINE SULFATE 4 MG/ML SYRG IV PRN (14:06)
[2017-05-25] MEDS: MORPHINE SULFATE 4 MG/ML SYRG IV PRN (17:00)
[2017-05-25] MEDS: CHLORPROMAZINE HCL 10 MG TAB PO SCH (22:00)
[2017-05-26] MEDS: MORPHINE SULFATE 4 MG/ML SYRG IV PRN (03:30)
[2017-05-26 05:00] VITALS: BP 121/76
[2017-05-26] MEDS: methylPREDNISolone SOD SUCC 40 MG/ML VL IV SCH ×5 (05:32→23:38)
[2017-05-26] MEDS: IPRATROPIUM BROM 0.5 MG/2.5ML INH SOL NEB SCH ×4 (06:39→20:15)
[2017-05-26] MEDS: ALBUTEROL SULF 2.5 MG/0.5ML(0.5%) NEB SOLN NEB SCH ×4 (06:40→20:15)
[2017-05-26] MEDS: HYDROcodone-ACET 5/325MG TAB PO PRN ×2 (06:52→18:25)
[2017-05-26] MEDS: SPIRONOLACTONE 25 MG TAB PO SCH (09:29)
[2017-05-26] MEDS: LITHIUM CARBONATE 300 MG TAB PO SCH ×2 (09:29→21:36)
[2017-05-26] MEDS: CARVEDILOL 3.125 MG TAB PO SCH ×2 (09:30→21:36)
[2017-05-26] MEDS: APIXABAN 5 MG TAB PO SCH ×2 (09:30→21:37)
[2017-05-26] MEDS: QUEtiapine FUMARATE 25 MG TAB PO SCH ×2 (09:31→21:36)
[2017-05-26] MEDS: FUROSEMIDE 40 MG TAB PO SCH (09:31)
[2017-05-26] MEDS: NICOTINE 21MG/24 HR TOPICAL PATCH TD SCH (09:31)
[2017-05-26 09:39] VITALS: BP 124/78
[2017-05-26 13:00] VITALS: BP 111/70
[2017-05-26 17:38] VITALS: BP 103/61
[2017-05-26 21:33] VITALS: BP 121/70
[2017-05-26] MEDS: CHLORPROMAZINE HCL 10 MG TAB PO SCH (21:37)
[2017-05-27 05:00] VITALS: BP 121/76
[2017-05-27] MEDS: methylPREDNISolone SOD SUCC 40 MG/ML VL IV SCH ×2 (05:41→12:20)
[2017-05-27] MEDS: ALBUTEROL SULF 2.5 MG/0.5ML(0.5%) NEB SOLN NEB SCH ×3 (06:36→15:22)
[2017-05-27] MEDS: IPRATROPIUM BROM 0.5 MG/2.5ML INH SOL NEB SCH ×3 (06:36→15:22)
[2017-05-27] MEDS: LITHIUM CARBONATE 300 MG TAB PO SCH (09:54)
[2017-05-27] MEDS: QUEtiapine FUMARATE 25 MG TAB PO SCH (09:55)
[2017-05-27] MEDS: APIXABAN 5 MG TAB PO SCH (09:55)
[2017-05-27] MEDS: CARVEDILOL 3.125 MG TAB PO SCH (10:32)
[2017-05-27] MEDS: SPIRONOLACTONE 25 MG TAB PO SCH (10:32)
[2017-05-27] MEDS: FUROSEMIDE 40 MG TAB PO SCH (10:33)
[2017-05-27] MEDS: NICOTINE 21MG/24 HR TOPICAL PATCH TD SCH (10:33)
== END 2017-05-27 16:00 | DRG 134 ==
LOC: EDBD 13:46 → ER 13:53 → TELE 13:54 → TELE-WESTW 05-21 04:50 → DOU IN ICU 05-22 16:15 → TELE-WESTW 05-25 20:23
PROVIDERS: ADMIT Internal Medicine; ATTEND Hospitalist
DX: I26.99 Other pulmonary embolism without acute cor pulmonale (principal); J96.22 Acute and chronic respiratory failure with hypercapnia; E87.2 Acidosis; R18.8 Other ascites; I50.9 Heart failure, unspecified; I42.0 Dilated cardiomyopathy; K74.60 Unspecified cirrhosis of liver; J44.9 Chronic obstructive pulmonary disease, unspecified; B18.2 Chronic viral hepatitis C; F20.9 Schizophrenia, unspecified; F17.210 Nicotine dependence, cigarettes, uncomplicated; J98.11 Atelectasis; Z82.49 Family history of ischemic heart disease and other diseases of the circulatory system; F15.90 Other stimulant use, unspecified, uncomplicated; F32.9 Major depressive disorder, single episode, unspecified; F41.9 Anxiety disorder, unspecified
CPT/HCPCS: 36415; 36600; 70450; 71010; 71275; 80048; 80053; 80061; 80178; 80307; 81001; 82140; 82550; 82805; 83605; 83735; 83880; 84484; 85025; 85379; 85610; 85652; 85730; 86141; 87081; 93005; 93306; 93970; 94640; 94660; 99291